=== PATIENT | female | born 1990 | race African-American/Black ===

== ENCOUNTER 2021-11-01 11:03 | Emergency (ER) | payer SELFPAY ==
[~2021-11-01] VITALS: Ht 170.2 cm; Wt 82.0 kg
[2021-11-01 11:11] VITALS: BP 154/109
[2021-11-01] MEDS ORDERED: KETOROLAC 60MG/2ML VIAL IM ONE (11:15)
[2021-11-01] MEDS ORDERED: METHOCARBAMOL 500MG TABLET PO ONE (11:15)
[2021-11-01] MEDS ORDERED: METH-773 MT (12:57)
[2021-11-01] MEDS ORDERED: LIDO1ADH5 TP (12:57)
[2021-11-01] MEDS ORDERED: NAPR-681 MT (12:57)
== END 2021-11-01 13:06 | disposition home or self-care (01) ==
LOC: ER 11:03
DX: S16.1XXA Strain of muscle, fascia and tendon at neck level, initial encounter (principal); S39.012A Strain of muscle, fascia and tendon of lower back, initial encounter; S80.12XA Contusion of left lower leg, initial encounter; S80.11XA Contusion of right lower leg, initial encounter; V49.59XA Passenger injured in collision with other motor vehicles in traffic accident, initial encounter; Y93.89 Activity, other specified; Y92.488 Other paved roadways as the place of occurrence of the external cause
CPT/HCPCS: 72100; 73590; 96372; 99284; J1885